=== PATIENT | female | born 1950 | race American Indian/Alaskan Native ===

== ENCOUNTER 2016-10-08 10:02 | Emergency (ER) | payer OTHER ==
[2016-10-08 10:08] VITALS: BMI 26.8
[2016-10-08 10:14] VITALS: RESP 18; TEMP 98
--- NOTE | 2016-10-08 10:40 | ED PDOC ---
Arrival/HPI <Maciel Dyer Jr. - Last Filed: 10/08/16 11:45> - General Historian: Patient - History of Present Illness Time/Duration: 1 hour Symptom Onset: Sudden Symptom Course: Unchanged Context: Work <Jordana Prasad - Last Filed: 10/08/16 13:04> - General Chief Complaint: Trauma Time Seen by Provider: 10/08/16 10:26 - History of Present Illness Narrative History of Present Illness (Text): 10/08/16 10:36 66 year old female with past medical history of Hypertension, asthma, meningioma s/p resection presents after experiencing a mechanical fall about 1 hour ago at work. Patient works in day care center. She states that she was carrying a child and tripped over some toy and landed face forward. Patient states that she hit her chin and her left knee. Denies LOC. Pt currently has pain in her neck, left knee and chin area. Patient was able to ambulate after the fall. (Jordana Prasad) Past Medical History - Provider Review Nursing Documentation Reviewed: Yes - Travel History Have you recently traveled outside [place] w/in the past 3 mons?: No - Infectious Disease Hx of Infectious Diseases: None - Cardiac Hx Cardiac Disorders: No Hx Pacemaker: No - Pulmonary Hx Respiratory Disorders: Yes Hx Asthma: Yes - Neurological Hx Neurological Disorder: Yes Hx Paralysis: No Other/Comment: brain surgery - HEENT Hx HEENT Disorder: No - Renal Hx Renal Disorder: No - Endocrine/Metabolic Hx Endocrine Disorders: No - Hematological/Oncological Hx Blood Disorders: Yes Hx Anemia: Yes Hx Blood Transfusions: Yes Hx Blood Transfusion Reaction: No - Integumentary Hx Dermatological Disorder: No - Musculoskeletal/Rheumatological Hx Musculoskeletal Disorders: Yes (DISC DISEASE) - Gastrointestinal Hx Gastrointestinal Disorders: No - Psychiatric Hx Emotional Abuse: No Hx Physical Abuse: No Hx Substance Use: No - Surgical History Hx Joint Replacement: Yes (R hip) Other/Comment: brain surgery. - Anesthesia Hx Anesthesia: Yes Hx Anesthesia Reactions: Yes (nausea) Hx Malignant Hyperthermia: No - Suicidal Assessment Feels Threatened In Home Enviroment: No <Jordana Prasad - Last Filed: 10/08/16 13:04> Family/Social History - Physician Review Nursing Documentation Reviewed: Yes Family/Social History: Unknown Family HX Smoking Status: Never Smoked Hx Alcohol Use: No Hx Substance Use: No <Jordana Prasad - Last Filed: 10/08/16 13:04> Allergies/Home Meds <Maciel Dyer Jr. - Last Filed: 10/08/16 11:45> <Jordana Prasad - Last Filed: 10/08/16 13:04> Allergies/Adverse Reactions: Allergies oxycodone Allergy (Intermediate, Verified 10/08/16 10:09) VOMITING sulfamethoxazole [From Bactrim] Allergy (Intermediate, Verified 10/08/16 10:09) HIVES trimethoprim [From Bactrim] Allergy (Intermediate, Verified 10/08/16 10:09) HIVES Home Medications: Home Meds Medication Instructions Recorded Confirmed Budesonide/Formoterol Fumarate 1 puff IH BID 02/01/15 10/08/16 [Symbicort] Metoprolol Tartrate [Lopressor] 25 mg PO BID 02/01/15 10/08/16 Montelukast [Singulair] 10 mg PO DAILY 02/01/15 10/08/16 amLODIPine [Norvasc] 10 mg PO DAILY 02/01/15 10/08/16 cycloSPORINE [Restasis] 1 drop OU BID 02/01/15 10/08/16 Albuterol HFA 0.091 puff INH PRN PRN 11/15/15 Calcium Carbonate [Caltrate] 600 tab PO DAILY 11/15/15 10/08/16 L.acidoph,Paracasei, B.lactis 10 mg PO DAILY 11/15/15 10/08/16 [Probiotic] Multivit-Min/FA/Lycopen/Lutein 1 each PO DAILY 11/15/15 10/08/16 [Centrum Silver Tablet] Vitamin E (Dl,Tocopheryl Acet) 500 mg PO DAILY 11/15/15 10/08/16 [E-200] Magnesium Oxide [Magnesium] 1 tab PO DAILY 11/19/15 10/08/16 Gabapentin [Neurontin] 300 mg PO TID 10/08/16 10/08/16 Review of Systems - Review of Systems Constitutional: Normal. absent: Fatigue, Fevers Eyes: Normal. absent: Vision Changes, Photophobia ENT: Normal. absent: Voice Changes, Sore Throat, Rhinorrhea, Sinus Congestion Respiratory: Normal. absent: SOB, Cough, Wheezing Cardiovascular: Normal. absent: Chest Pain, Palpitations, Edema, Calf Pain Gastrointestinal: Normal. absent: Abdominal Pain, Constipation, Diarrhea, Nausea, Vomiting Genitourinary Female: Normal. absent: Dysuria, Frequency, Hematuria Musculoskeletal: Arthralgias (left knee), Neck Pain. absent: Back Pain Skin: Normal. absent: Rash, Pruritis, Abscess Neurological: Headache. absent: Dizziness, Focal Weakness, Gait Changes, Speech Changes, Facial Droop Endocrine: Normal. absent: Diaphoresis Hemo/Lymphatic: Normal. absent: Adenopathy, Easy Bleeding <Karim,Jordana - Last Filed: 10/08/16 13:04> Physical Exam <Maciel Dyer Jr. - Last Filed: 10/08/16 11:45> Vital Signs Reviewed: Yes Temperature: Afebrile Blood Pressure: Normal Pulse: Regular Respiratory Rate: Normal Appearance: Positive for: Well-Appearing, Non-Toxic, Comfortable Pain Distress: Mild Mental Status: Positive for: Alert and Oriented X 3 - Systems Exam Head: Present: Atraumatic, Normocephalic Pupils: Present: PERRL Extroacular Muscles: Present: EOMI Mouth: Present: Moist Mucous Membranes Neck: Present: Normal Range of Motion. No: Meningeal Signs, MIDLINE TENDERNESS , Paraspinal Tenderness Respiratory/Chest: Present: Clear to Auscultation, Good Air Exchange. No: Respiratory Distress, Accessory Muscle Use, Wheezes, Rales, Rhonchi Cardiovascular: Present: Regular Rate and Rhythm, Normal S1, S2. No: Murmurs, Rub, Gallop Abdomen: Present: Normal Bowel Sounds. No: Tenderness, Distention, Peritoneal Signs, Rebound, Guarding Back: No: Normal Inspection, CVA Tenderness, Midline Tenderness, Paraspinal Tenderness Upper Extremity: Present: Normal Inspection, Normal ROM, Neurovascularly Intact. No: Cyanosis, Edema Lower Extremity: Present: Normal Inspection, NORMAL PULSES, Normal ROM, Swelling (slight swelling noted on left knee with tenderness ), Neurovascularly Intact. No: Edema, CALF TENDERNESS, Tenderness, Erythema Neurological: Present: GCS=15, CN II-XII Intact, Speech Normal, Motor Func Grossly Intact, Normal Sensory Function Skin: Present: Warm, Dry, Normal Color. No: Rashes, Laceration, Abscess, Abrasion Psychiatric: Present: Alert, Oriented x 3, Normal Insight, Normal Concentration <Karim,Jordana - Last Filed: 10/08/16 13:04> Vital Signs Temp Pulse Resp BP Pulse Ox 10/08/16 12:07 58 L 18 126/77 98 10/08/16 10:12 98.0 F 57 L 18 133/84 99 Medical Decision Making <Maciel Dyer Jr. - Last Filed: 10/08/16 11:45> - RAD Interpretation Pump Erector Helper: ED Physician <Jordana Prasad - Last Filed: 10/08/16 13:04> ED Course and Treatment: 10/08/16 11:45 In agreement with resident note, which includes further HPI details. Patient was seen and evaluated with resident, came up with plan and treatment together. (Maciel Dyer Jr.) 10/08/16 10:45 66 year old F presents after experiencing a fall about 1 hour ago. Patient has history of brain meningioma s/p resection. [place] CT head injury score is 0 but patient has history of brain surgery. Will get CT of head and cervical neck. Will also get xray of left knee. Patient will be given toradol IM. (Jordana Prasad) - RAD Interpretation Narrative RAD Interpretations (Text): 10/08/16 11:[address] of head and cervical spine. Knee xray shows no gross fracture ( Jordana Prasad) Radiology Orders: 10/08/16 10:55 CERVICAL SPINE W/O CONTRAST [CT] Stat HEAD W/O CONTRAST [CT] Stat KNEE LEFT 2 VIEWS (AP & LAT) [RAD] Stat - Medication Orders Current Medication Orders: Discontinued Medications Ketorolac Tromethamine (Toradol) 30 mg IM STAT STA Stop: 10/08/16 10:56 Last Admin: 10/08/16 11:37 Dose: 30 mg - PA / WORKFORCE STAFFING ADVISOR / Resident Statement MD/DO has reviewed & agrees with the documentation as recorded. MD/DO has examined the patient and agrees with the treatment plan. - Scribe Statement The provider has reviewed the documentation as recorded by the Scribe <Maciel Dyer Jr. - Last Filed: 10/08/16 11:45> <Jordana Prasad - Last Filed: 10/08/16 13:04> - Scribe Statement 10/08/2016 Roslyn Zhao Provider Scribe Attestation: All medical record entries made by the Scribe were at my direction and personally dictated by me. I have reviewed the chart and agree that the record accurately reflects my personal performance of the history, physical exam, medical decision making, and the department course for this patient. I have also personally directed, reviewed, and agree with the discharge instructions and disposition. (Maciel Dyer Jr.) Disposition/Present on Arrival <Maciel Dyer Jr. - Last Filed: 10/08/16 11:45> - Present on Arrival Any Indicators Present on Arrival: No History of DVT/PE: No History of Uncontrolled Diabetes: No Urinary Catheter: No History of Decub. Ulcer: No History Surgical Site Infection Following: Abdominal Surgery, Orthopedic Procedures, None - Disposition Have Diagnosis and Disposition been Completed?: Yes Disposition Time: 11:36 Patient Plan: Discharge <Jordana Prasad - Last Filed: 10/08/16 13:04> - Disposition Diagnosis: Fall, Knee contusion, Chin contusion Disposition: HOME/ ROUTINE Condition: GOOD Additional Instructions: Nicolle Villela, thank you for letting us take care of you today. Your provider was Dr. Jordana Prasad. You were treated for knee contusion and chin contusion. The emergency medical care you received today was directed at your acute symptoms. If you were prescribed any medication, please fill it and take as directed. It may take several days for your symptoms to resolve. Return to the Emergency Department if your symptoms worsen, do not improve, or if you have any other problems. Please contact your doctor or call one of the physicians/clinics you have been referred to that are listed on the Patient Visit Information form that is included in your discharge packet. Bring any paperwork you were given at discharge with you along with any medications you are taking to your follow up visit. Our treatment cannot replace ongoing medical care by a primary care provider (PCP) outside of the emergency department. Thank you for allowing the [facility] team to be part of your care today. If you had an X-Ray or CT scan: A Radiologist will review the ED reading if any change in treatment is needed we will contact you. If you had a blood, urine, or wound culture: It will take several days for the results, if any change in treatment is needed we will contact you. If you had an STI test: It will take 48 hours for the results. Please call after 1 week if you have not heard back. Referrals: Monster Noe MD [Primary Care Provider] - Follow up with primary Forms: Latio (Latvian)
--- NOTE | 2016-10-08 11:20 | CT ---
PROCEDURE: CT HEAD WITHOUT CONTRAST. HISTORY: fall hx of meningioma resection COMPARISON: None available. TECHNIQUE: Axial computed tomography images were obtained through the head/brain without intravenous contrast. Radiation dose: Total exam DLP = 689 mGy-cm. This CT exam was performed using one or more of the following dose reduction techniques: Automated exposure control, adjustment of the mA and/or kV according to patient size, and/or use of iterative reconstruction technique. FINDINGS: HEMORRHAGE: No intracranial hemorrhage. BRAIN: No mass effect or edema. No atrophy or chronic microvascular ischemic changes. VENTRICLES: Unremarkable. No hydrocephalus. CALVARIUM: There is a craniotomy defect in the left occipital bone. The defect is filled with cement. Some of the cement extends intracranial E as seen on image 22 series 3. The intracranial component measures 16 x 24 mm. PARANASAL SINUSES: Unremarkable as visualized. No significant inflammatory changes. MASTOID AIR CELLS: Unremarkable as visualized. No inflammatory changes. OTHER FINDINGS: None. IMPRESSION: No acute findings. Craniotomy changes in left occipital bone
--- NOTE | 2016-10-08 11:26 | CT ---
PROCEDURE: CT Cervical Spine without contrast HISTORY: Patient fell COMPARISON: None available. TECHNIQUE: Axial computed tomography images were obtained of the cervical spine without the use of intravenous contrast. Coronal and sagittal reformatted images were created and reviewed. Radiation dose: Total exam DLP = 463 mGy-cm. This CT exam was performed using one or more of the following dose reduction techniques: Automated exposure control, adjustment of the mA and/or kV according to patient size, and/or use of iterative reconstruction technique. FINDINGS: VERTEBRAE: No fracture. Normal alignment. No destructive bony lesion. DISCS/SPINAL CANAL/NEURAL FORAMINA: No significant central canal or neural foraminal stenosis. Disc degeneration is seen at C4-5, C5-6 and C6-7 PARASPINAL SOFT TISSUES: Unremarkable. OTHER FINDINGS: None. IMPRESSION: No acute findings
[2016-10-08 12:18] VITALS: BP 126/77; PULSE 58; O2SAT 98
--- NOTE | 2016-10-08 12:21 | RAD ---
PROCEDURE: Left Knee Radiographs. HISTORY: Pain. COMPARISON: None. FINDINGS: BONES: Normal. No fracture. Incidental medial femoral condylar 3 mm bone island JOINTS: Trace osteoarthritis. Medial tibial spine spurring JOINT EFFUSION: None. OTHER FINDINGS: None. IMPRESSION: No fracture. Trace osteoarthrosis -medial tibial spine spurring
== END 2016-10-08 12:17 | disposition home or self-care (01) ==
LOC: ED 10:02
DX: S00.83XA Contusion of other part of head, initial encounter (principal); S80.02XA Contusion of left knee, initial encounter; W01.0XXA Fall on same level from slipping, tripping and stumbling without subsequent striking against object, initial encounter; Y93.89 Activity, other specified; Y92.210 Daycare center as the place of occurrence of the external cause; Y99.0 Civilian activity done for income or pay
CPT/HCPCS: 70450; 72125; 73560; 96372; 99284; J1885